=== PATIENT | female | born 2000 | race Hispanic/Latino ===

== ENCOUNTER 2021-04-28 21:38 | Emergency (ER) | payer SELFPAY ==
[~2021-04-28] VITALS: Ht 157.5 cm; Wt 95.3 kg
== END 2021-04-29 01:09 | disposition home or self-care (01) ==
LOC: ER 23:18
DX: R05 Cough (principal); J06.9 Acute upper respiratory infection, unspecified
CPT/HCPCS: 83518; 87070; 99283; U0002

== ENCOUNTER 2022-12-24 16:32 | Emergency (ER) | payer SELFPAY ==
[~2022-12-24] VITALS: Ht 157.5 cm; Wt 95.3 kg
[2022-12-24] MEDS ORDERED: AMOX TR-K CLV1 EAC2 PO (18:50)
== END 2022-12-24 19:12 | disposition home or self-care (01) ==
LOC: ER 17:19
DX: H66.92 Otitis media, unspecified, left ear (principal)
CPT/HCPCS: 99282

== ENCOUNTER 2023-01-14 19:32 | Emergency (ER) | payer SELFPAY ==
[~2023-01-14] VITALS: Ht 157.5 cm; Wt 95.3 kg
[~2023-01-14 19:32] MED LIST: AMOX TR-K CLV1 EAC2 PO
[2023-01-14 20:24] LABS: BASOPHILS # (AUTO) 0.1 (0.0-0.1); BASOPHILS % 1.1 % (0.0-1.0); EOSINOPHILS # (AUTO) 0.2 (0.0-0.4); EOSINOPHILS % 1.7 % (0.0-6.0); HEMATOCRIT 37.4 % (34.2-44.1); HEMOGLOBIN 11.4 g/dL (12.0-16.0); LYMPHOCYTES # (AUTO) 3.1 (1.0-3.2); LYMPHOCYTES % 27.5 % (18.0-39.1); MEAN CORPUSCULAR HEMOGLOBIN 24.9 pg (28-32); MEAN CORPUSCULAR HGB CONC 30.5 g/dL (31-35); MEAN CORPUSCULAR VOLUME 81.8 fL (81-99); MONOCYTES # (AUTO) 0.8 (0.2-0.8); MONOCYTES % 6.6 % (4.4-11.3); NEUTROPHILS # (AUTO) 7.2 (2.1-6.9); NEUTROPHILS % 62.7 % (38.7-80.0); PLATELET COUNT 496 x10e3/uL (140-360); RED BLOOD COUNT 4.57 x10e6/uL (3.6-5.1); RED CELL DISTRIBUTION WIDTH 15.3 % (11.7-14.4)
[2023-01-14 20:25] LABS: CLARITY,URINE HAZY (CLEAR); COLOR,URINE ORANGE (YELLOW); KETONES,URINE NEGATIVE (NEGATIVE); LEUKOCYTE ESTERASE ,URINE NEGATIVE (NEGATIVE); NITRITE,URINE NEGATIVE (NEGATIVE); PROTEIN,URINE DIPSTICK 1+ (NEGATIVE); URINE UROBILINOGEN 0.2 mg/dL (0.2 - 1)
[2023-01-14 20:37] LABS: BACTERIA,URINE RARE /HPF; RBC,URINE >50 /HPF (0-5)
[2023-01-14] MEDS ORDERED: IBUPROFEN 600 MG TAB PO STA (20:38)
[2023-01-14 20:44] LABS: ANION GAP 15.8 mmol/L (8-16); CALCIUM 9.2 mg/dL (8.4-10.2); CREATININE, SERUM 0.76 mg/dL (0.57-1.11); POTASSIUM 4.8 mmol/L (3.5-5.1)
[2023-01-14] MEDS ORDERED: MOTRIN200 MG PO (21:17)
[2023-01-14 21:34] VITALS: BP 113/77; PULSE 64; RESP 17; TEMP 98.6; O2SAT 100
== END 2023-01-14 21:30 | disposition home or self-care (01) ==
LOC: ER 19:34
DX: N93.8 Other specified abnormal uterine and vaginal bleeding (principal); N94.6 Dysmenorrhea, unspecified; R10.2 Pelvic and perineal pain
CPT/HCPCS: 36415; 80048; 81001; 81025; 85025; 99283

== ENCOUNTER 2024-07-31 19:06 | Emergency (ER) | payer SELFPAY ==
[~2024-07-31] VITALS: Ht 157.5 cm; Wt 113.4 kg
[~2024-07-31 19:06] MED LIST changes: +MOTRIN200 MG PO
[2024-07-31 19:24] VITALS: PULSE 72; RESP 16; TEMP 98.4; O2SAT 100
[2024-07-31] MEDS ORDERED: AZITHROMYCIN250 MG PO (19:25)
== END 2024-07-31 19:30 | disposition home or self-care (01) ==
LOC: ER 19:14
DX: H66.92 Otitis media, unspecified, left ear (principal); R05.9 Cough, unspecified; R07.0 Pain in throat
CPT/HCPCS: 99283

== ENCOUNTER 2024-10-28 20:39 | Emergency (ER) | payer SELFPAY ==
[~2024-10-28] VITALS: Ht 157.5 cm; Wt 113.4 kg
[~2024-10-28 20:39] MED LIST changes: +AZITHROMYCIN250 MG PO
[2024-10-28 21:05] VITALS: PULSE 97; RESP 16; TEMP 99.9
[2024-10-28] MEDS ORDERED: IBUPROFEN 600 MG TAB ONE (22:57)
[2024-10-28] MEDS: IBUPROFEN 600 MG TAB PO STA (23:03)
[2024-10-28 23:13] LABS: CORONAVIRUS COVID-19 AG NEGATIVE (NEGATIVE); INFLUENZA A AG NEGATIVE (NEGATIVE); INFLUENZA B AG NEGATIVE (NEGATIVE); STREPTOCOCCUS GRP A ANTIGEN NEGATIVE (NEGATIVE)
[2024-10-28 23:53] VITALS: BP 147/85; PULSE 96; RESP 17; TEMP 99.1; O2SAT 99
[2024-10-28] MEDS ORDERED: AMOXICILLIN500 MG PO (23:54)
== END 2024-10-28 23:58 | disposition home or self-care (01) ==
LOC: ER 20:46
DX: H66.92 Otitis media, unspecified, left ear (principal)
CPT/HCPCS: 83518; 87070; 99283